=== PATIENT | female | born 1945 | race Caucasian/White ===

== ENCOUNTER 2016-11-17 09:52 | Day surgery (SDC) | payer MEDICARE ==
[2016-11-17] MEDS ORDERED: LIDOCAINE 2% MDV (20MG/ML) 20ML VIAL IV ONE (14:00)
[2016-11-17] MEDS ORDERED: PROPOFOL 10 MG/ML VIAL IV ONE (14:00)
[2016-11-17] MEDS ORDERED: FENTANYL PF 100MCG/2ML VIAL IV ONE (14:00)
--- NOTE | 2016-11-22 10:30 | Operative Note ---
DATE OF SURGERY: REQUESTING PHYSICIAN: Dr. Dean Casarez Surgeon: Ayah Mauricio MD POSTOPERATIVE DIAGNOSES: 1. Mild distal esophagitis. 2. Mild gastritis. 3. Normal duodenum. 4. Normal colonic and terminal ileum mucosa with no ulcerative lesions. OPERATION: ESOPHAGOGASTRODUODENOSCOPY AND COLONOSCOPY INDICATION FOR PROCEDURE: This is a 71-year-old female with history of epigastric pain and diarrhea who presented for both esophagogastroduodenoscopy and colonoscopy. SEDATION: Sedation is per Anesthesia. Pulse oximetry was monitored throughout the duration of the procedure to maintain O2 saturation of 90% or greater. Supplemental oxygen was administered via nasal cannula. Cardiac and vital signs were monitored throughout the duration of the procedure and they were stable. PROCEDURE: The procedure of esophagogastroduodenoscopy and colonoscopy, risks and alternatives to the procedure, including the risks of bleeding and perforation among others, were explained to the patient; the patient voiced understanding and agrees to have the procedure done. Physical examination was performed and the patient was found stable for sedation. The patient was then placed in the left lateral position and sedation was initiated. A plastic bite block was inserted into the oral cavity. A lubricated Olympus XPE053 gastroscope was then placed in the posterior oropharynx and under direct visualization was advanced to the proximal esophagus without difficulty. The esophageal mucosa was carefully examined upon introduction of the gastroscope. The proximal and mid and distal esophageal mucosa appeared normal. At the level of the GE junction, there was Z- line irregularity concern with esophagitis. The gastroscope was then advanced to the stomach and serial examination of the stomach revealed diffuse erythema along the gastric body and antrum. No ulcers were noted. The gastroscope was then advanced to the duodenum without difficulty. The duodenal bulb and descending duodenal mucosa appeared normal. The gastroscope was then withdrawn into the stomach and retroflexion maneuver was performed. There were no other lesions noted. The gastroscope was then slowly withdrawn, very carefully re- examining the gastric and esophageal mucosa with no other lesions noted. Multiple duodenal, gastric lesions were noted and biopsies were obtained. She remained with stable vital signs. At this time, she was repositioned for colonoscopy. Digital rectal exam was performed and showed small external hemorrhoids with no palpable rectal masses. A lubricated Olympus PCF-180AL colonoscope was then inserted into the rectum and under direct visualization was advanced to the cecum without difficulty. The ileocecal valve and appendiceal orifice were identified and photographed. The colonic mucosa was carefully examined upon introduction of the colonoscope. There were no lesions noted. The ileocecal valve was intubated and the terminal ileal mucosa was inspected for about 5 cm and it appeared normal. The colonoscope was then withdrawn very carefully re- examining the colonic mucosal surfaces. No other lesions were noted. Random biopsies were obtained to rule out microscopic colitis. In the rectum, retroflexion maneuver was performed and grade 1 internal hemorrhoids were noted. The colonoscope was then withdrawn and the procedure was terminated. The patient tolerated the procedure well without any complications. She remained with stable vital signs and was sent to the Recovery Room. PLAN AND RECOMMENDATIONS: 1. Follow up on the biopsies. 2. She should have a repeat colonoscopy for screening in 10 years. 3. Should continue on her proton pump inhibitors and I would be happy to see her back in the office as needed. Thank you for allowing me to participate in the care of your patient. Ayah Mauricio MD CC: Dr. Dean PAINTER
== END 2016-11-17 12:16 | disposition home or self-care (01) ==
LOC: HOP 09:52
PROVIDERS: ATTEND Internal Medicine Gastroenterology
DX: Z12.11 Encounter for screening for malignant neoplasm of colon (principal); K29.60 Other gastritis without bleeding; K64.4 Residual hemorrhoidal skin tags
CPT/HCPCS: 00810; 43239; G0121

== ENCOUNTER 2017-09-06 19:08 | Emergency (ER) | payer MEDICARE ==
[2017-09-06] MEDS ORDERED: PROPARACAINE HCL OPTH 15ML BTL OPTH ONE (19:10)
--- NOTE | 2017-09-06 19:23 | Emergency Department Record ---
History of Present Illness - General Chief complaint: Eye Problem Stated complaint: LEFT EYE INJURY Time Seen by Provider: 09/06/17 19:10 Source: Patient, Family Mode of Arrival: Ambulatory Limitations: No limitations - History of Present Illness Initial comments: 72 yo female presents with an injury to the eye. She was using eye drops that come in a single use container that the end is torn off. When she applied the drops she accidentally hit the left eye. This occurred at 10am The area of discomfort is near the 3 o clock position. No blood noted. No contact use. She has had Lasix procedure in the past. No significant changes in vision. MD chief complaint: Eye pain, Eye injury -: Hour(s) Onset Description: Gradual Location: Left eye Place: Home If Injury: Direct trauma Eye Symptoms: Burning Severity: Moderate Consistency: Constant Context: History of glaucoma, Injury Associated Symptoms: None Treatments Prior to Arrival: None - Related Data Home Medications Medication Instructions Recorded Confirmed Last Taken Cyclosporine [Restasis] 1 each OP ASDIR 09/06/17 09/06/17 Unknown Allergies Allergy/AdvReac Type Severity Reaction Status Date / Time omeprazole [From Prilosec] Allergy Intermediate RASH Verified 09/06/17 19:17 omeprazole magnesium Allergy Intermediate RASH Verified 09/06/17 19:17 [From Prilosec] budesonide [From Entocort EC] Allergy PT UNSURE Verified 09/06/17 19:17 OF REACTION cortisone Allergy PT UNSURE Verified 09/06/17 19:17 OF REACTION esomeprazole magnesium Allergy SWELLING Verified 09/06/17 19:17 [From Nexium] (GENERAL) hyoscyamine Allergy PT UNSURE Verified 09/06/17 19:17 OF REACTION latex Allergy RASH Verified 09/06/17 19:17 mesalamine [From Asacol] Allergy PT UNSURE Verified 09/06/17 19:17 OF REACTION naproxen AdvReac VOMITING Verified 09/06/17 19:17 Review of Systems Constitutional: Denies: Chills, Fever, Malaise, Weakness Eyes: Reports: Eye pain. Denies: Eye discharge, Vision change ENT: Denies: Congestion, Throat pain Respiratory: Denies: Cough Cardiovascular: Denies: Chest pain Endocrine: Denies: Fatigue Gastrointestinal: Denies: Diarrhea, Nausea, Vomiting Genitourinary: Denies: Dysuria Musculoskeletal: Denies: Arthralgia, Back pain, Joint swelling, Myalgia Skin: Denies: Bruising, Change in color, Rash Neurological: Denies: Headache, Numbness, Weakness Psychiatric: Denies: Anxiety Hematological/Lymphatic: Denies: Blood Clots, Easy bleeding, Easy bruising, Swollen glands Past Medical History - SOCIAL HISTORY Smoking Status: Former smoker - RESPIRATORY Hx COPD: Yes - CARDIOVASCULAR Hx Cardio Disorders: Yes Hx Abnormal EKG: Yes Hx Chest Pain: Yes (for about a year, last "few weeks ago" L->R radiating 03/24 ( comes/goes)) Hx Edema: Yes - NEURO Hx Neuro Disorders: Yes Hx Dizziness: Yes (during stress test) Hx Headaches: Yes Hx Neuropathy: Yes (hands & feet, shooting pain down 1 leg or the other) Comment:: ? lupus - GI Hx GI Disorders: Yes Hx Abdominal Pain: Yes (periumbilical radiating to BLQ) Hx Reflux: Yes Hx Nausea/Vomiting: Yes Hx Ulcer: Yes Comment:: Hx: microscopic colitis - Hx Genitourinary Disorders: No - ENDOCRINE Hx Endocrine Disorders: No Hx Thyroid Disease: ("hx of med use, none now") - MUSCULOSKELETAL Hx Arthritis: Yes (RA?) - PSYCH Hx Psych Problems: Yes Hx Depression: Yes (psychologist) - HEMATOLOGY/ONCOLOGY Hx Hematology/Oncology Disorders: No Family Medical History Hx Cancer: Father, Mother, Brother/Sister *Cancer Comment: skin, breast, uterine Hx Diabetes: Father Hx Heart Disease: Father Hx HTN: Father Hx Resp Disorders: Father Physical Exam - General General Appearance: Alert, Oriented x3, Cooperative, No acute distress - Head Head exam: Atraumatic, Normal inspection - Eye Eye exam: PERRL, Conjunctival injection, EOMI. negative: Normal appearance, Periorbital swelling, Periorbital tenderness Pupils: Normal accommodation. negative: Irregular, Unequal IOP measured with: other (The eye was stain and viewed with the slit lamp. She has uptake at the 6 o clock position, no streaming, the AC is clear without hyphema, ) Image of Eyes: 1 - Pupil 2 - abrasion with stain up take - ENT ENT exam: Normal exam, Mucous membranes moist Ear exam: Normal external inspection Nasal Exam: Normal inspection Mouth exam: Normal external inspection Teeth exam: Normal inspection - Neck Neck exam: Normal inspection - Neurological Neurological exam: Alert, CN II-XII intact, Oriented X3. negative: Altered - Psychiatric Psychiatric exam: Normal affect, Normal mood. negative: Agitated, Anxious - Skin Skin exam: Dry, Intact, Normal color, Warm Course - Reevaluation(s) Reevaluation #1: The patient got immediate relief with the Topical Alcaine She has an abrasion below the pupil out of the central vision axis No streaming. Clear AC without hyphema She was given instructions to contact her eye doctor tomorrow She is to return in the next 24-48 hours if any pain persists Tylenol or Motrin for discomfort 09/06/17 19:26 Disposition Disposition: Discharge Clinical Impression: Corneal abrasion Qualifiers: Encounter type: initial encounter Laterality: left Qualified Code(s): S05.02XA - Injury of conjunctiva and corneal abrasion without foreign body, left eye, initial encounter Disposition: Home, Self-Care Condition: (1) Good Instructions: Corneal Abrasion (ED) Additional Instructions: Return to the ED in the next 24 o 48 hours if worse or not improving Use the Antibiotic drops every 4 hours Call your eye doctor for a recheck tomorrow to ensure healing of the abrasion Time of Disposition: 19:29 Quality - Quality Measures Quality Measures: N/A - Blood Pressure Screening Does Patient Have Any of the Following: No Systolic Measurement: ~ Screening for High Blood Pressure: < Pre-Hypertensive BP, F/U Documented > [ G8950] Pre-Hypertensive Follow-up Interventions: Referral to alternative/primary care provider.
[2017-09-06] MEDS ORDERED: POLYMYXIN B SULF/TRIMETHOPRIM 10ML BTL OPTH ONE (19:24)
== END 2017-09-06 19:40 | disposition home or self-care (01) ==
LOC: ER 19:08
DX: S05.02XA Injury of conjunctiva and corneal abrasion without foreign body, left eye, initial encounter (principal); W22.8XXA Striking against or struck by other objects, initial encounter; Y92.009 Unspecified place in unspecified non-institutional (private) residence as the place of occurrence of the external cause
CPT/HCPCS: 99283

== ENCOUNTER 2019-01-21 14:48 | Emergency (ER) | payer MEDICARE ==
[2019-01-21 15:41] LABS: BASO % 0.5 % (0-6); EOS % 1.8 % (0-6); GRAN % 69.6 % (47-80); HEMATOCRIT 43.8 % (35.0-47.0); HEMOGLOBIN 14.8 gm/dl (11.6-16.0); LYMPH % 20.7 % (16-45); MEAN CORPUSCULAR HEMOGLOBIN 27.3 pg (27-33); MEAN CORPUSCULAR HGB CONC 33.8 g/dl (32-36); MEAN PLATELET VOLUME 9.4 fl (7.4-10.4); MONO % 7.4 % (0-9); PLATELET COUNT 266 K/uL (130-400); RED BLOOD COUNT 5.41 M/uL (3.80-5.40); RED CELL DISTRIBUTION WIDTH 14.2 % (11.5-14.5); WHITE BLOOD COUNT W/O DIFF 7.3 K/uL (4.2-12.2)
--- NOTE | 2019-01-21 15:48 | Emergency Department Record ---
History of Present Illness - General Chief Complaint: Chest Pain Stated Complaint: CHEST PAIN,SLURRED SPEECH,STUTTERING Time Seen by Provider: 01/21/19 15:16 Source: Patient Mode of Arrival: Ambulatory Limitations: No limitations - History of Present Illness Initial Comments: The patient is here due to an episode of Cp 3 weeks ago. The patient stated she had significant pain over the course of a day with mild SOB and stuttering speech. The pain lasted about a day then resolved. Since the patient has had mild stuttering speech. The patient states the night before last she has episodes of expressive aphasia and since has had the speech difficulties off and on. Today she denies any CP or SOB or any visual or balance issues. She is up walking normally and did drive here with no problems. MD Complaint: Chest pain Onset/Timin -: Week(s) Onset: Other Pain Location: Left chest Improves With: Nothing Worsens With: Nothing - Related Data Home Medications Medication Instructions Recorded Confirmed Last Taken Cimetidine 300 mg PO QID 01/21/19 01/21/19 01/20/19 Lisinopril 10 mg PO DAILY 01/21/19 01/21/19 01/20/19 Nortriptyline HCl 10 mg PO QHS 01/21/19 01/21/19 01/20/19 Allergies Allergy/AdvReac Type Severity Reaction Status Date / Time omeprazole [From Prilosec] Allergy Intermediate RASH Verified 09/06/17 19:17 omeprazole magnesium Allergy Intermediate RASH Verified 09/06/17 19:17 [From Prilosec] budesonide [From Entocort EC] Allergy PT UNSURE Verified 09/06/17 19:17 OF REACTION cortisone Allergy PT UNSURE Verified 09/06/17 19:17 OF REACTION esomeprazole magnesium Allergy SWELLING Verified 09/06/17 19:17 [From Nexium] (GENERAL) hyoscyamine Allergy PT UNSURE Verified 09/06/17 19:17 OF REACTION latex Allergy RASH Verified 09/06/17 19:17 mesalamine [From Asacol] Allergy PT UNSURE Verified 09/06/17 19:17 OF REACTION naproxen AdvReac VOMITING Verified 09/06/17 19:17 Travel Screening - Travel/Exposure Within Last 30 Days Have you traveled within the last 30 days?: No - Travel/Exposure Within Last Year Have you traveled outside the [place] in the last year?: No - Additonal Travel Details Have you been exposed to anyone with a communicable illness?: No - Travel Symptoms Symptom Screening: None, Headache Review of Systems Constitutional: Denies: Chills, Fever Eyes: Denies: Eye discharge ENT: Denies: Congestion Respiratory: Denies: Cough, Dyspnea Cardiovascular: Reports: Chest pain. Denies: Arrhythmia, Dyspnea on exertion Endocrine: Denies: Fatigue Gastrointestinal: Denies: Nausea Genitourinary: Denies: Dysuria Musculoskeletal: Denies: Arthralgia Skin: Denies: Bruising Past Medical History - SOCIAL HISTORY Smoking Status: Former smoker Alcohol Use: None Drug Use: Rare Drug Use Detail:: Marijuana - RESPIRATORY Hx Respiratory Disorders: Yes Hx COPD: Yes - CARDIOVASCULAR Hx Cardio Disorders: Yes Hx Abnormal EKG: Yes Hx Chest Pain: Yes (for about a year, last "few weeks ago" L->R radiating 6/10 ( comes/goes)) Hx Edema: Yes - NEURO Hx Neuro Disorders: Yes Hx Dizziness: Yes (during stress test) Hx Headaches: Yes Hx Neuropathy: Yes (hands & feet, shooting pain down 1 leg or the other) Comment:: ? lupus - GI Hx GI Disorders: Yes Hx Abdominal Pain: Yes (periumbilical radiating to BLQ) Hx Reflux: Yes Hx Nausea/Vomiting: Yes Hx Ulcer: Yes Comment:: Hx: microscopic colitis - Hx Genitourinary Disorders: No Hx Kidney Stones: Yes - ENDOCRINE Hx Endocrine Disorders: No Hx Thyroid Disease: ("hx of med use, none now") - MUSCULOSKELETAL Hx Musculoskeletal Disorders: Yes Hx Arthritis: Yes (RA?) - PSYCH Hx Psych Problems: Yes Hx Depression: Yes (psychologist) - HEMATOLOGY/ONCOLOGY Hx Hematology/Oncology Disorders: No Hx Bruising: Yes Family Medical History Any Significant Family History?: No Hx Cancer: Father, Mother, Brother/Sister *Cancer Comment: skin, breast, uterine Hx Diabetes: Father Hx Heart Disease: Father Hx HTN: Father Hx Resp Disorders: Father Physical Exam - General General Appearance: Alert, Oriented x3, Cooperative, No acute distress - Head Head exam: Atraumatic, Normocephalic, Normal inspection - Eye Eye exam: Normal appearance, PERRL, EOMI - ENT Throat exam: Normal inspection. negative: Tonsillar erythema, Tonsillar exudate - Neck Neck exam: Normal inspection, Full ROM. negative: Tenderness - Respiratory Respiratory exam: Normal lung sounds bilaterally. negative: Rales, Respiratory distress - Cardiovascular Cardiovascular Exam: Regular rate, Normal rhythm, Normal heart sounds. negative : Diastolic murmur, Systolic murmur - GI/Abdominal GI/Abdominal exam: Soft, Normal bowel sounds. negative: Tenderness - Extremities Extremities exam: Normal inspection, Full ROM, Normal capillary refill. negative: Tenderness - Neurological Neurological exam: Alert, CN II-XII intact, Normal gait, Oriented X3, Other ( Neg Drift and Rhomberg exams.). negative: Abnormal gait, Altered, Motor sensory deficit - Psychiatric Psychiatric exam: negative: Anxious - Skin Skin exam: negative: Rash Course Vital Signs 01/21/19 15:12 Temperature 98.0 F Pulse Rate [ 88 Pulse Ox Probe] Respiratory 16 Rate Blood Pressure 185/87 [Left Arm] Pulse Ox 94 L - Reevaluation(s) Reevaluation #1: The patient is doing very well at this time and is Neurologically intact with no pain or discomfort. I explained to her that I would like to admit her to the hospital for monitoring and have her heart evaluated further and also her brain for a TIA. The patient initially agreed but now is declining the admission and would like to go home. I did explain to her that the risk of leaving is that she could go home and have an OK, stroke, become disabled and . The patient understands and accepts the risks and understands we cannot be held liable for NOT admitting her to the hospital. She is to see her PCP KAYLIN and can return to the ER for any return of her symptoms. The patient presently has proper decision making capacity and accepts the risks of leaving. 01/21/19 16:43 Medical Decision Making - Data Complexity MDM Data: Labs Ordered and/or Reviewed, X-Ray Ordered and/or Reviewed, EKG Ordered and/or Reviewed - Lab Data Result diagrams: 01/21/19 15:06 01/21/19 15:06 Lab Results 01/21/19 Range/Units 15:06 WBC 7.3 (4.2-12.2) K/uL RBC 5.41 H (3.80-5.40) M/uL Hgb 14.8 (11.6-16.0) gm/dl Hct 43.8 (35.0-47.0) % MCV 81.0 (81-97) fl MCH 27.3 (27-33) pg MCHC 33.8 (32-36) g/dl RDW 14.2 (11.5-14.5) % Plt Count 266 (130-400) K/uL MPV 9.4 (7.4-10.4) fl Gran % 69.6 (47-80) % Lymphocytes % 20.7 (16-45) % Monocytes % 7.4 (0-9) % Eosinophils % 1.8 (0-6) % Basophils % 0.5 (0-6) % - EKG Data -: EKG Interpreted by Tx EKG: No Acute Changes, Normal EKG - Radiology Data Radiology results: Report reviewed (CXR: neg for acute changes. Head CT: Neg for acute changes.) Disposition Disposition: Discharge Clinical Impression: Chest pain at rest Disposition: Against Medical Advice Condition: (2) Stable Instructions: Chest Pain (ED) Additional Instructions: Please continue your regular medicines and take an ASA daily. Please see your doctor KAYLIN and return to the ER for any return of your symptoms. Forms: Patient Portal Access Time of Disposition: 16:52 Quality - Quality Measures Quality Measures: N/A - Blood Pressure Screening View Details: Yes Does Patient Have Any of the Following: No Blood Pressure Classification: Hypertensive Reading Systolic Measurement: 171 Diastolic Measurement: 95 Screening for High Blood Pressure: < First Hypertensive BP, F/U Documented > [ G8950] First Hypertensive Follow-up Interventions: Referral to alternative/primary care provider.
[2019-01-21 15:49] LABS: BLOOD UREA NITROGEN 17 mg/dL (8-23); CREATININE 0.7 mg/dL (0.5-0.9); EST GLOMERULAR FILTRATION RATE > 60 mL/min
[2019-01-21 15:52] LABS: GLUCOSE,RANDOM 93 mg/dL (74-109)
[2019-01-21 15:53] LABS: PARTIAL THROMBOPLASTIN TIME 26.6 SECONDS (24.5-39.1)
[2019-01-21 15:55] LABS: CREATINE PHOSPHOKINASE 102 U/L (26-192)
[2019-01-21 15:57] LABS: CKMB 3.2 ng/mL (<3.77)
[2019-01-21] MEDS ORDERED: ASPIRIN 325 MG TABLET PO ONE (16:24)
--- NOTE | 2019-01-23 08:50 | CT SCAN REPORT ---
EXAM: CT SCAN OF THE BRAIN WITHOUT CONTRAST HISTORY: EXPRESSIVE APHASIA. CONFUSION. TECHNIQUE: Standard CT imaging of the brain was performed in the axial plane without contrast. Comparison: None. FINDINGS: The ventricles and subarachnoid spaces are normal. Minor chronic small vessel ischemic changes are present within the periventricular and subcortical white matter at both cerebral hemispheres. There is no mass, mass effect, intracranial hemorrhage, visible acute infarct, or abnormal extraaxial fluid. The skull is intact. The orbits, sinuses, and mastoids are normal. IMPRESSION: 1. NO ACUTE INTRACRANIAL ABNORMALITY. 2. MILD CHRONIC SMALL VESSEL ISCHEMIC CHANGES. JOB NUMBER: [id number] [facility]
--- NOTE | 2019-01-23 08:53 | RADIOLOGY REPORT ---
EXAM: CHEST, TWO VIEWS HISTORY: MIDLINE CHEST PRESSURE FOR THE PAST WEEK. TECHNIQUE: PA and lateral upright views of the chest were obtained. Comparison: None. FINDINGS: The heart, mediastinum, and pulmonary vasculature are normal. There are no acute infiltrates or effusions. There is no pneumothorax. Degenerative changes are present within the spine. Intraarticular loose bodies are present within both shoulders. IMPRESSION: 1. NO ACUTE CHEST PATHOLOGY. 2. CHRONIC FINDINGS ABOVE. JOB NUMBER: [id number] [facility]
== END 2019-01-21 17:05 | disposition left against medical advice (07) ==
LOC: ER 14:48
DX: R07.89 Other chest pain (principal); F80.81 Childhood onset fluency disorder; J44.9 Chronic obstructive pulmonary disease, unspecified; Z87.891 Personal history of nicotine dependence
CPT/HCPCS: 70450; 71046; 80048; 82550; 82553; 84484; 85025; 85610; 85730; 93005; 93010; 99284

== ENCOUNTER 2019-09-15 18:19 | Emergency (ER) | payer MEDICARE ==
[2019-09-15] MEDS ORDERED: CLONIDINE HCL 0.1 MG TABLET PO ONE (19:05)
--- NOTE | 2019-09-15 19:15 | Emergency Department Record ---
History of Present Illness - General Chief Complaint: Numbness Stated Complaint: HEADACHE/RT SIDE HEAD FEELS NUMB Time Seen by Provider: 09/15/19 18:52 Source: Patient Mode of Arrival: Ambulatory Limitations: No limitations - History of Present Illness Initial Comments: pt had a gradual onset of a thakkar that started in her r forehead and gradually went to her neck. it started while she was getting her hair done. she has never had a thakkar like this. it became so bad driving home that she came to the ed. she has no n. she had transient numbness of her l forehead which has resolved. she has a hx of stuttering she states because of depression. 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) - Related Data Home Medications: Previous Rx's Medication Instructions Recorded Lisinopril 10 mg PO DAILY #10 tab 09/15/19 Allergies/Adverse Reactions: Allergies Allergy/AdvReac Type Severity Reaction Status Date / Time omeprazole [From Prilosec] Allergy Intermediate RASH Verified 09/15/19 18:45 omeprazole magnesium Allergy Intermediate RASH Verified 09/15/19 18:45 [From Prilosec] budesonide [From Entocort EC] Allergy PT UNSURE Verified 09/15/19 18:45 OF REACTION cortisone Allergy PT UNSURE Verified 09/15/19 18:45 OF REACTION esomeprazole magnesium Allergy SWELLING Verified 09/15/19 18:45 [From Nexium] (GENERAL) hyoscyamine Allergy PT UNSURE Verified 09/15/19 18:45 OF REACTION latex Allergy RASH Verified 09/15/19 18:45 mesalamine [From Asacol] Allergy PT UNSURE Verified 09/15/19 18:45 OF REACTION naproxen AdvReac VOMITING Verified 09/15/19 18:45 Travel Screening - Travel/Exposure Within Last 30 Days Have you traveled within the last 30 days?: No Review of Systems Reviewed: No additional complaints except as noted below Constitutional: Reports: As per HPI. Denies: Chills, Fever, Malaise, Night sweats, Weakness, Weight change Eyes: Reports: As per HPI. Denies: Eye discharge, Eye pain, Photophobia, Vision change ENT: Reports: As per HPI. Denies: Congestion, Dental pain, Ear pain, Epistaxis, Hearing loss, Throat pain Respiratory: Reports: As per HPI. Denies: Cough, Dyspnea, Hemoptysis, Stridor, Wheezes Cardiovascular: Reports: As per HPI. Denies: Arrhythmia, Chest pain, Dyspnea on exertion, Edema, Murmurs, Orthopnea, Palpitations, Paroxysmal nocturnal dyspnea, Rheumatic Fever, Syncope Endocrine: Reports: As per HPI. Denies: Fatigue, Heat or cold intolerance, Polydipsia, Polyuria Gastrointestinal: Reports: As per HPI. Denies: Abdominal pain, Constipation, Diarrhea, Hematemesis, Hematochezia, Melena, Nausea, Vomiting Genitourinary: Reports: As per HPI. Denies: Abnormal menses, Discharge, Dyspareunia, Dysuria, Frequency, Hematuria, Incontinence, Retention, Urgency Musculoskeletal: Reports: As per HPI. Denies: Arthralgia, Back pain, Gout, Joint swelling, Myalgia, Neck pain Skin: Reports: As per HPI. Denies: Bruising, Change in color, Change in hair/nails, Lesions, Pruritus, Rash Neurological: Reports: As per HPI, Headache. Denies: Abnormal gait, Confusion, Numbness, Paresthesias, Seizure, Tingling, Tremors, Vertigo, Weakness Psychiatric: Reports: As per HPI. Denies: Anxiety, Auditory hallucinations, Depression, Homicidal thoughts, Suicidal thoughts, Visual hallucinations Hematological/Lymphatic: Reports: As per HPI. Denies: Anemia, Blood Clots, Easy bleeding, Easy bruising, Swollen glands Past Medical History - SOCIAL HISTORY Smoking Status: Former smoker Alcohol Use: None Drug Use: None - RESPIRATORY Hx Respiratory Disorders: Yes Hx COPD: Yes - CARDIOVASCULAR Hx Cardio Disorders: Yes Hx Abnormal EKG: Yes Hx Chest Pain: Yes Hx Edema: Yes - NEURO Hx Neuro Disorders: Yes Hx Dizziness: Yes Hx Headaches: Yes Hx Neuropathy: Yes - GI Hx GI Disorders: Yes Hx Abdominal Pain: Yes Hx Reflux: Yes Hx Nausea/Vomiting: Yes Hx Ulcer: Yes Comment:: Hx: microscopic colitis - Hx Genitourinary Disorders: Yes Hx Kidney Stones: Yes - ENDOCRINE Hx Endocrine Disorders: No Hx Thyroid Disease: ("hx of med use, none now") - MUSCULOSKELETAL Hx Musculoskeletal Disorders: Yes Hx Arthritis: Yes - PSYCH Hx Psych Problems: Yes Hx Depression: Yes (psychologist) - HEMATOLOGY/ONCOLOGY Hx Hematology/Oncology Disorders: Yes Hx Bruising: Yes Family Medical History Any Significant Family History?: Yes Hx Cancer: Father, Mother, Brother/Sister *Cancer Comment: skin, breast, uterine Hx Diabetes: Father Hx Heart Disease: Father Hx HTN: Father Hx Resp Disorders: Father Physical Exam - General General Appearance: Alert, Oriented x3, Cooperative, Mild distress - Head Head exam: Normal inspection - Eye Eye exam: Normal appearance, PERRL, EOMI Pupils: Normal accommodation - ENT ENT exam: Normal exam, Mucous membranes moist, Normal external ear exam, Normal orophraynx Ear exam: Normal external inspection. negative: External canal tenderness Nasal Exam: Normal inspection. negative: Discharge, Sinus tenderness Mouth exam: Normal external inspection, Tongue normal Teeth exam: Normal inspection. negative: Dental caries Throat exam: Normal inspection. negative: Tonsillar erythema, Tonsillar exudate - Neck Neck exam: Normal inspection, Full ROM. negative: Tenderness - Respiratory Respiratory exam: Normal lung sounds bilaterally. negative: Respiratory distress - Cardiovascular Cardiovascular Exam: Regular rate, Normal rhythm, Normal heart sounds - GI/Abdominal GI/Abdominal exam: Soft, Normal bowel sounds. negative: Tenderness - Rectal Rectal exam: Deferred - exam: Deferred - Extremities Extremities exam: Normal inspection, Full ROM, Normal capillary refill. negative: Tenderness - Back Back exam: Reports: Normal inspection, Full ROM. Denies: Muscle spasm, Rash noted, Tenderness - Neurological Neurological exam: Alert, CN II-XII intact, Normal gait, Oriented X3 - Psychiatric Psychiatric exam: Normal affect, Normal mood - Skin Skin exam: Dry, Intact, Normal color, Warm Course Vital Signs 09/15/19 18:41 Temperature 98.7 F Pulse Rate 89 Respiratory 20 Rate Blood Pressure 218/103 Pulse Ox 98 - Reevaluation(s) Reevaluation #1: 09/15/19 20:[address] neg Reevaluation #2: 09/15/19 21:00 pt states she is supposed to be on bp med Medical Decision Making - Lab Data Result diagrams: 09/15/19 19:10 09/15/19 19:10 Disposition Disposition: Discharge Clinical Impression: Hypertension Qualifiers: Hypertension type: essential hypertension Qualified Code(s): I10 - Essential (primary) hypertension Headache Qualifiers: Headache type: tension-type Headache chronicity pattern: acute headache Intractability: not intractable Qualified Code(s): G44.209 - Tension-type headache, unspecified, not intractable Disposition: Home, Self-Care Condition: (1) Good Instructions: Chronic Hypertension (ED), Acute Headache (ED) Additional Instructions: follow up with family doctor tomorrow. return sooner if worse. Prescriptions: Lisinopril 10 mg PO DAILY #10 tab Forms: Patient Portal Access Quality - Quality Measures Quality Measures: N/A - Blood Pressure Screening Does Patient Have Any of the Following: Active Dx of HTN Blood Pressure Classification: Hypertensive Reading Systolic Measurement: 218 Diastolic Measurement: 103 Screening for High Blood Pressure: Patient Exclusion, Hx of HTN [[id number]]
[2019-09-15 19:24] LABS: ABSOLUTE NEUTROPHIL COUNT 3.67; BASO % 0.4 % (0-6); EOS % 3.3 % (0-6); GRAN % 64.5 % (47-80); HEMATOCRIT 43.2 % (35.0-47.0); LYMPH % 26.4 % (16-45); MEAN CELL VOLUME 82.8 fl (81-97); MEAN CORPUSCULAR HEMOGLOBIN 26.8 pg (27-33); MEAN CORPUSCULAR HGB CONC 32.4 g/dl (32-36); MEAN PLATELET VOLUME 8.9 fl (7.4-10.4); MONO % 5.4 % (0-9); PLATELET COUNT 227 K/uL (130-400); RED BLOOD COUNT 5.22 M/uL (3.80-5.40); RED CELL DISTRIBUTION WIDTH 13.7 % (11.5-14.5); WHITE BLOOD COUNT W/O DIFF 5.7 K/uL (4.2-12.2)
[2019-09-15 19:36] LABS: BLOOD UREA NITROGEN 14 mg/dL (8-23); CREATININE 0.6 mg/dL (0.5-0.9); EST GLOMERULAR FILTRATION RATE > 60 mL/min
[2019-09-15 19:37] LABS: TOTAL PROTEIN 7.1 g/dL (6.6-8.7)
[2019-09-15 19:39] LABS: GLUCOSE,RANDOM 104 mg/dL (74-109)
[2019-09-15 19:42] LABS: ALB/GLOB RATIO 1.7 (1.1-1.8); ALBUMIN 4.5 g/dL (4.0-5.0); ALKALINE PHOSPHATASE 70 U/L (35-104); ALT/SGPT 15 U/L (<33); AST/SGOT 16 U/L (10.0-35.0)
--- NOTE | 2019-09-15 19:53 | CT SCAN REPORT ---
EXAMINATION: CT Head without IV Contrast EXAM DATE: 09/15/2019 7:42 PM TECHNIQUE: Standard protocol CT images of the head were obtained without intravenous contrast. Soler l and sagittal reconstructed images were created. INDICATION: Right-sided headache COMPARISON: 01/21/2019 HAND DOMINANCE: Unknown. ENCOUNTER: Not applicable FINDINGS: 1. There is no intracranial mass, midline shift, extraaxial fluid collection or acute hemorrhage. 2. The ventricles, sulci and cisterns are unchanged and within normal age limits. 3. There are no suspicious areas of altered attenuation. Mild probable chronic small vessel ischemic findings are again noted within the supratentorial white matter. 4. There is no fracture. 5. The visualized aspects of the orbits, paranasal sinuses, and mastoid air cells are acutely unrema rkable. IMPRESSION: Stable exam without evidence of an acute process. Dictated by: Zana Le MD on 09/15/2019 7:48 PM. .
[2019-09-15 20:19] LABS: ERYTHROCYTE SEDIMENTATION RATE 10 mm/hr (0-30)
[2019-09-15] MEDS ORDERED: ACETAMINOPHEN 1,000 MG/100 ML BTL IVPB ONE (20:19)
[2019-09-15] MEDS ORDERED: LISINOPRIL 10 MG TABLET PO ONE (21:01)
== END 2019-09-15 21:13 | disposition home or self-care (01) ==
LOC: ER 18:19
DX: I10 Essential (primary) hypertension (principal); G44.209 Tension-type headache, unspecified, not intractable; R20.0 Anesthesia of skin; R11.0 Nausea; R42 Dizziness and giddiness; J44.9 Chronic obstructive pulmonary disease, unspecified; Z87.891 Personal history of nicotine dependence
CPT/HCPCS: 70450; 80053; 85025; 85651; 93005; 93010; 96365; 99284